=== PATIENT | male | born 1965 ===

== ENCOUNTER 2018-08-18 00:34 | Emergency (ER) | payer SELFPAY ==
[2018-08-18] MEDS ORDERED: Albuterol-Ipratrop 3 mg / 0.5 (3 ml) UD ONE ×2 (00:52→01:49)
[2018-08-18] MEDS ORDERED: Albuterol-Ipratrop 3 mg / 0.5 (3 ml) UD INH STA ×3 (01:03→01:04)
--- NOTE | 2018-08-18 01:03 | C.PDOC ---
History Of Present Illness 53 year old male presents to the ED c/o severe sinus congestion, productive cough with yellowish phlegm. Patient also reports feeling SOB, patient reports having similar symptoms in the past. Patient denies fever, chills, headache, rash, CP, palpitations, rash. Chief Complaint (Nursing): Shortness Of Breath History Per: Patient History/Exam Limitations: no limitations Onset/Duration Of Symptoms: Hrs Current Symptoms Are (Timing): Still Present Initiating Event: Upper Respiratory Illness Quality: Tightness Exacerbating Factor(s): Coughing Current Respiratory Medications: See Home Med List Associated Symptoms: Productive Cough Recent travel outside of the [place]: No Additional History Per: Patient Past Medical History Reviewed: Historical Data, Nursing Documentation, Vital Signs - Medical History PMH: No Chronic Diseases Surgical History: No Surg Hx Family History: States: Unknown Family Hx - Social History Hx Tobacco Use: No Hx Alcohol Use: No Hx Substance Use: No Review Of Systems Constitutional: Negative for: Fever, Chills ENT: Positive for: Nose Discharge, Nose Congestion Respiratory: Positive for: Cough, Shortness of Breath, Sputum Gastrointestinal: Negative for: Nausea, Vomiting, Abdominal Pain, Diarrhea Skin: Negative for: Rash Neurological: Negative for: Weakness, Numbness, Headache Physical Exam - Physical Exam Appears: Non-toxic, In Acute Distress Skin: Normal Color, Warm, Dry Head: Atraumatic, Normacephalic Eye(s): bilateral: Normal Inspection Ear(s): Bilateral: Normal Nose: Other (nasal congestion) Oral Mucosa: Moist Neck: Normal ROM, Supple Chest: Symmetrical Cardiovascular: Rhythm Regular Respiratory: No Rales, Rhonchi, Wheezing, Other (moderate dyspnic) Gastrointestinal/Abdominal: Soft, No Tenderness, No Distention Extremity: Normal ROM, No Tenderness Neurological/Psych: Oriented x3, Normal Speech, Normal Cognition Gait: Steady ED Course And Treatment ECG: Interpreted By Me, Viewed By Me ECG Rhythm: Sinus Rhythm ECG Interpretation: Normal, No Acute Changes Interpretation Of ECG: normal tracings Rate From EC O2 Sat by Pulse Oximetry: 94 - CT Scan/US CT head Other Rad Studies (CT/US): Read By Radiologist, Radiology Report Reviewed CT/US Interpretation: EXAM: CT Sinuses without Intravenous Contrast. CLINICAL HISTORY: PATIENT COMPLAINT OF CHRONIC SINUSES. TECHNIQUE: Computed tomography images of the maxillofacial sinuses without intravenous contrast. 0.00 mGy-cm. CONTRAST: Without. COMPARISON: None provided. FINDINGS: PARANASAL SINUSES: There is essentially complete opacification of both maxillary sinuses, the ethmoid air cells, the right sphenoid sinus and frontal sinuses compatible with extensive chronic sinus disease. It is difficult to exclude superimposed acute sinus disease. There is also prominent mucosal thickening of left sphenoid sinus. There are postsurgical changes of the maxillary sinuses bilaterally. There has been destruction of many of the ethmoid air cells, probably due to chronic sinus disease. ORBITS: The globes and retrobulbar structures appear normal. NASAL CAVITY/SEPTUM: There appears to be mucosal thickening and/or polyps within the nasal passages as well. BONES: There appear to be chronic fracture lines through the frontal sinuses bilaterally, with suturing screws in place suggesting prior fracture repair. SOFT TISSUES: The soft tissues are unremarkable. MISCELLANEOUS: The mastoid air cells are normally aerated. Visualized intracranial contents are unremarkable. IMPRESSION: 1. There is essentially complete opacification of both maxillary sinuses, the ethmoid air cells, the right sphenoid sinus and frontal sinuses compatible with extensive chronic sinus disease. It is difficult to exclude superimposed acute sinus disease. There is also prominent mucosal thickening of left sphenoid sinus. 2. There are postsurgical changes of the maxillary sinuses bilaterally. 3. There has been destruction of many of the ethmoid air cells, probably due to chronic sinus disease. 4. There appear to be chronic fracture lines through the frontal sinuses bilaterally, with suturing screws in place suggesting prior fracture repair. 5. There appears to be mucosal thickening and/or polyps within the nasal passages as well. 6. The mastoid air cells are normally aerated. 7. Visualized intracranial contents are unremarkable. 8. The globes and retrobulbar structures appear normal. . Electronically signed on Aug 18, 2018 1:53:35 AM EDT by: Elver Akers M.D., Certified by [facility], Diagnostic Radiology Medical Decision Making Medical Decision Making: Plan: * Duoneb x 3 * Solumderol 125 mg IVP * IV fluids * CXR Disposition Counseled Patient/Family Regarding: Diagnosis - Disposition Referrals: at [facility] [Outside] Disposition: HOME/ ROUTINE Disposition Time: 01:56 Condition: STABLE Prescriptions: Albuterol HFA [Ventolin HFA 90 mcg/actuation (8 g)] 2 puff IH [id number] #1 inhaler Amoxicillin/Clavulanate [Augmentin 875 MG-125 MG] 1 tab PO BID #14 tab Desloratadine/Pseudoephedrine [Clarinex-D 12 Hour Tablet] 1 each PO BID #20 tbmp.12hr Methylprednisolone [Medrol Dose Pack (21 tabs)] 4 mg PO DAILY #21 mg Instructions: Asthma, Adult (DC), Sinusitis, Adult (DC) Forms: [facility] (Hungarian), Gen Discharge Inst Ukrainian Print Language: KAZAKH - Clinical Impression Clinical Impression: Acute sinusitis, Asthma - Scribe Statement The provider has reviewed the documentation as recorded by the Scribe Mike Sanchez All medical record entries made by the Scribe were at my direction and personally dictated by me. I have reviewed the chart and agree that the record accurately reflects my personal performance of the history, physical exam, medical decision making, and the department course for this patient. I have also personally directed, reviewed, and agree with the discharge instructions and disposition.
[2018-08-18] MEDS ORDERED: Sodium Chloride 0.9% 1,000 ML IV ONE (01:04)
[2018-08-18 01:11] VITALS: TEMP 97.8
[2018-08-18] MEDS ORDERED: Amoxicillin-Clav 875-125 mg Tab PO STA (01:55)
[2018-08-18] MEDS ORDERED: Amoxicillin-Clav 875-125 mg Tab PO ONE (02:04)
[2018-08-18 02:49] VITALS: BP 108/67; PULSE 71; RESP 20; O2SAT 95
--- NOTE | 2018-08-18 10:27 | RAD ---
HISTORY: cough/ wheezing COMPARISON: None available. TECHNIQUE: Chest PA and lateral, 2 views FINDINGS: LUNGS: Scarring/infiltrates noted within the medial right upper lobe. No focal consolidation. Please note that chest x-ray has limited sensitivity for the detection of pulmonary masses. PLEURA: No significant pleural effusion identified. No definite pneumothorax . CARDIOVASCULAR: The cardiomediastinal silhouette appears within normal limits of size. No atherosclerotic calcification present. OSSEOUS STRUCTURES: No acute osseous abnormality identified. VISUALIZED UPPER ABDOMEN: Unremarkable. OTHER FINDINGS: None. IMPRESSION: Scarring/infiltrates within the medial right upper lobe. Study marked for PA review.
--- NOTE | 2018-08-18 12:38 | CT ---
Date of service: 08/18/2018 PROCEDURE: CT SINUSES WITHOUT CONTRAST HISTORY: paranasal congestion COMPARISON: None available. TECHNIQUE: Contiguous axial CT images of the paranasal sinuses were obtained. Coronal and sagittal reformats were generated. Radiation dose: Total exam DLP = 607.12 mGy-cm. This CT exam was performed using one or more of the following dose reduction techniques: Automated exposure control, adjustment of the mA and/or kV according to patient size, and/or use of iterative reconstruction technique. FINDINGS: Pansinus opacification of the maxillary sinuses, ethmoid sinuses, frontal sinuses and sphenoid sinuses consistent with severe chronic sinus disease. Associated ostiomeatal unit occlusion. NASAL SEPTUM: No significant deviation. No destructive lesion. MASS: None. SKULL BASE: Unremarkable. TEMPORAL BONES: Middle ears and mastoid grossly unremarkable. OTHER FINDINGS: None. IMPRESSION: Pansinus opacification of the maxillary sinuses, ethmoid sinuses, frontal sinuses and sphenoid sinuses consistent with severe chronic sinus disease. Associated ostiomeatal unit occlusion.
--- NOTE | 2018-08-19 23:49 | CARD ---
APPROVED REPORT Date of service: 08/18/2018 EKG Measurement Heart [id number] <Conclusion> Normal sinus rhythm Normal ECG
== END 2018-08-18 02:52 | disposition home or self-care (01) ==
LOC: C.ER 00:34
DX: J01.90 Acute sinusitis, unspecified (principal); J45.909 Unspecified asthma, uncomplicated
CPT/HCPCS: 70486; 71046; 93005; 96361; 96374; 99283; J2930; J7030